=== PATIENT | female | born 1960 | race Caucasian/White ===

== ENCOUNTER 2018-02-06 11:40 | Emergency (ER) | payer SELFPAY ==
[~2018-02-06] VITALS: Ht 157.5 cm; Wt 98.9 kg
[2018-02-06 12:39] LABS: MICROSCOPIC INDICATED
[2018-02-06 13:02] VITALS: BP 150/84
== END 2018-02-06 13:49 | disposition home or self-care (01) ==
LOC: ED 12:57
DX: N30.90 Cystitis, unspecified without hematuria (principal)
CPT/HCPCS: 81001; 99283